=== PATIENT | male | born 1985 | race Caucasian/White ===

== ENCOUNTER 2018-10-14 10:31 | Emergency (ER) | payer SELFPAY ==
[2018-10-14 10:32] VITALS: BP 139/95; PULSE 87; RESP 16; TEMP 36.4; O2SAT 100; BMI 29.6
--- NOTE | 2018-10-14 10:48 | ED.DCSUM_ITS ---
History of Present Illness Chief Complaint: Lower Extremity Injury Informant: Patient Occurred: Yesterday Mechanism/Context: Injury Current Severity: Mild Maximum Severity: Moderate Worsened by: Movement and weightbearing Relieved by: Nothing Associated Symptoms: Loss of Funtion. Negative for: Parasthesia, Weakness Narrative: Patient is a 33-year-old male who has injured his right and left ACL presents with injury to left knee. He had hyperextension mechanism injury. He states his foot went into a hole and he hyperextended. He reports immediate swelling. He arrived using crutches because of the discomfort when he bears weight. He reports pain with extension and flexion. He denies paresthesia, anesthesia motors. He denies ankle, foot or toe pain. He denies hip pain. Tetanus Immunization: 5-10 years Prior similar symptoms: Yes Recent Illness/Hospitalization: No Past Medical History - Allergies and Home Meds Allergies/Adverse Reactions: Allergies No Known Allergies Allergy (Verified 10/14/18 10:33) Primary Care Physician: Dillon Cuadra MD [Primary Care Provider] - Prior records reviewed: Yes - Injury right and left ACL Surgical History: - - Repair of right and left ACL Lives: Alone Smoking Status: Former smoker Alcohol: Rare Drugs: None Review of Systems Musculoskeletal: Reports: Swelling, Extremity Pain. Denies: Myalgias, Arthralgias, Neck pain, Back pain Skin: Denies: Rash, Wounds Neurological: Denies: Headache, Weakness, Parasthesia, Numbness Hematologic: Denies: Easy bruising, Easy bleeding Allergy: Denies: Uticaria, Swelling of the mouth Physical Exam Vital Signs/Narrative: Vital Signs Temp Pulse Resp BP Pulse Ox 10/14/18 10:32 97.5 F L 87 16 139/95 H 100 Inital Vital Signs reviewed: Yes - Extremity Exam Left Hip: Negative for: Abrasion, Contusion, Deformity, Edema, Hematoma, Limited ROM, - - Full active range of motion left hip Left Femur: Negative for: Abrasion, Contusion, Deformity, Edema, Hematoma, Limited ROM, - Left Knee: Limited ROM, - - The left knee is swollen compared to right. Patella is not ballotable but there is an effusion. He has minimal joint line tenderness. There is no pain abrasion over the infrapatellar tendon or quadriceps tendon. He is able to extend 170 degrees and flex to 90 degrees. Th ere is no laxity with varus or valgus stress testing. Modified Linda's test is negative. Jamia's test does reveal mild laxity on the left side.. Negative for: Abrasion, Contusion, Deformity, Edema, Hematoma Left Tib Fib: Negative for: Abrasion, Contusion, Deformity, Edema, Hematoma, Limited ROM, - Left Ankle: Negative for: Abrasion, Contusion, Deformity, Edema, Hematoma, Limited ROM, - Left Foot: Negative for: Abrasion, Contusion, Deformity, Edema, Hematoma, Limited ROM, - Left Toe: Negative for: Abrasion, Contusion, Deformity, Edema, Hematoma, Limited ROM, - General: Well nourished, Well developed Head: Normocephalic, Atraumatic Eyes: Perrl, EOMI. Negative for: Pale conjunctiva, Scleral icterus, - ENT: No Trauma, Moist Mucous Membranes Neck: Nontender, Full ROM Cardiovascular: Regular rate, Regular rhythm Respiratory: No distress Skin: Normal color, No rash Neurological: Alert, Oriented x3, Cranial nerves II-XII grossly intact, Normal Strength, Normal Sensation. Negative for: Normal Gait Psychological: Normal affect, Normal Mood Diagnostic/Tx/Re-eval Chest X-Ray - ED: Read by ED Physician, - - View x-ray of the knee reveals an effusion and prior changes secondary to ACL repair. There is no fracture, subluxation or dislocation. - Medical Decision Making Based on history, physical examination concern patient has ACL injury. X-ray was obtained to determine if there is a an associated pull off fracture of the tibial spine. Since Dr. Salas repaired his left ACL we will have him follow-up with Dr. Salas. Patient was instructed weight-bear as tolerated follow-up with Dr. livier galdamez in 5 to 7 days. The immobilizer was not given since there is no obvious laxity. ED Disposition - Plan for ED Patient: Disposition: Home or Assisted Living Diagnosis: Traumatic joint effusion Instructions: ED Knee Injury Cruciate Ligament Prescriptions: Hydrocodone Bitart/Apap 5-325 [[place] 5MG-325MG] 1 tab PO Q6H PRN PRN 3 Days #10 tab PRN Reason: Pain Referrals: Dillon Cuadra MD [Primary Care Provider] - Nik Tobar DO [STAFF PHYSICIAN] - 5-7 Days Additional Instructions: Weight-bear as tolerated. Call Dr. Salas's office to be seen within the next 5 to 7 days for repeat examination and possibly additional testing.
--- NOTE | 2018-10-14 11:27 | RAD_ITS ---
STUDY: X-RAY - LEFT KNEE REASON FOR EXAM: Male, 33 years old. Pain and swelling following a fall. TECHNIQUE: 4 view(s) of the knee. COMPARISON: Comparison is made with prior examination in March 27, 2010. FINDINGS: There is evidence of prior anterior cruciate ligament repair. Normal medial femorotibial compartment. Normal lateral femorotibial compartment. Normal patellofemoral articulation. Small joint effusion. RAD/Knee 4 or More Views IMPRESSION: Small joint effusion. Evidence of prior anterior cruciate ligament repair. Electronically Signed: Mk Elias, at 11:48 EDT , Service support ,
== END 2018-10-14 12:06 | disposition home or self-care (01) ==
PROVIDERS: Emergency Provider Emergency Medicine; Family Provider Family Medicine; PCP Family Medicine
DX: M25.462 Effusion, left knee (principal); S89.92XA Unspecified injury of left lower leg, initial encounter; X50.1XXA Overexertion from prolonged static or awkward postures, initial encounter; Y93.9 Activity, unspecified; Y92.9 Unspecified place or not applicable; Z87.891 Personal history of nicotine dependence
CPT/HCPCS: 73564; 99284

== ENCOUNTER 2018-10-17 10:59 | Emergency (ER) | payer SELFPAY ==
[2018-10-17 11:00] VITALS: BP 133/90; PULSE 98; RESP 17; TEMP 36.4; O2SAT 98; BMI 25.3
--- NOTE | 2018-10-17 11:28 | ED.DCSUM_ITS ---
- ER Visit Summary Date of Service: 10/17/18 Chief Complaint: Left knee History of Present Illness: The patient is a 33 M with history of bilateral ACL repairs. Patient was seen on October 14 after he twisted his left knee stepping in a hole. There is concern for possible reinjury to his ACL. Patient states he developed increasing pain after going back to a weightbearing over the past 2 days. He did take ibuprofen and 1 tab of Lloyd prior to arrival. He is an appointment to see Dr. Tobar in 3 days. Physical Examination: Vital signs unremarkable. Patient sitting upright in bed no acute distress. Left lower extremity examination reveals mild left knee edema. He has focal tenderness along the lateral surface. There is no laxity. He has strong distal pulses and normal sensation. Test Results: [] Emergency Department Course and Treatment: Previous visit was reviewed. X-rays were unremarkable. Patient be placed in Sandro wrap to help with any edema. He is to go back to nonweightbearing status. He will be given 1 tab of Lloyd here. He will continue anti-inflammatories every 8 hours. He will be given a new prescription for Lloyd, 10 tabs which should last him until his appointment with orthopedics. Treatment Plan: [] Disposition: Discharge Impression: Left knee sprain This note was generated with [employer] dictation software. It may contain incorrect words, spelling, and punctuation that were not noted in review of the chart prior to signing ED Disposition - Plan for ED Patient: Disposition: Home or Assisted Living Instructions: ED Sprain Knee Prescriptions: Hydrocodone Bitart/Apap 5-325 [[place] 5MG-325MG] 1 tablet PO Q6H PRN PRN 3 Days #10 tablet PRN Reason: Pain Referrals: Nik Tobar DO [STAFF PHYSICIAN] - Keep Manuel appointment
[2018-10-17] MEDS: HYDROcodone Bitartrate/Apap 5/325 Tablet PO (11:37)
[2018-10-17 11:38] VITALS: BP 129/81; PULSE 83; RESP 14; O2SAT 99
== END 2018-10-17 11:45 | disposition home or self-care (01) ==
LOC: ED 11:34
PROVIDERS: Emergency Provider Emergency Medicine; Family Provider Family Medicine; PCP Family Medicine
DX: S83.92XA Sprain of unspecified site of left knee, initial encounter (principal); X50.1XXA Overexertion from prolonged static or awkward postures, initial encounter; Y93.9 Activity, unspecified; Y92.9 Unspecified place or not applicable; Z87.891 Personal history of nicotine dependence
CPT/HCPCS: 99283

== ENCOUNTER 2019-12-10 13:20 | Emergency (ER) | payer MEDICAID, SELFPAY ==
[2019-12-10 12:50] VITALS: BMI 25.3
[2019-12-10 13:21] VITALS: BP 162/104; PULSE 86; RESP 17; TEMP 36.9; O2SAT 97; BMI 27.6
--- NOTE | 2019-12-10 13:32 | ED.DCSUM_ITS ---
- ER Visit Summary Date of Service: 12/10/19 Chief Complaint: Dental pain History of Present Illness: The patient is a [address] Mejia and [facility]. He reports he has pain in his right mandibular second molar that began 3 days ago. States that his third molar has come in crooked and has broken that second molar. He describes a sharp pain is 10 of 10 worsening to 10 currently. Is worsened by bending over drinking through a straw. Is taken Tylenol and ibuprofen without relief. Is sensitive to cold temperatures. Physical Examination: Vitals: Stable. Afebrile. Mouth: No trismus. No edema of the floor of the mouth. Pain with percussion of right mandibular second molar. There is no focal abscess. His third molar is impacted into this tooth. General: A&O x 3. NAD. Cardiovascular exam: Regular rate and rhythm, no murmur, rub or gallop. Respiratory exam: Clear to auscultation bilaterally. No wheezes or stridor. Abdominal exam: Soft, nontender, nondistended, normal bowel sounds. No peritoneal signs. Extremity: No clubbing, cyanosis, or edema. Emergency Department Course and Treatment: An [facility] report was obtained which shows had one prescription for opiates in the past year. He is given a dose of penicillin here. Treatment Plan: Patient will be discharged penicillin and [place]. Instructed to follow-up with his dentist soon as possible. Return to the emergency department for any worsening symptoms. Disposition: To home in improved and stable condition. Impression: 1. Dental pain. This note was generated with [employer] dictation software. It may contain incorrect words, spelling, and punctuation that were not noted in review of the chart prior to signing ED Disposition - Plan for ED Patient: Instructions: ED Tooth Pain Prescriptions: Hydrocodone Bitart/Apap 5-325 [[place] 5MG-325MG] 1 tablet PO Q4H PRN PRN 2 Days # 10 tablet PRN Reason: Pain Penicillin V Potassium 500 mg PO 4X/DAY #40 tablet Referrals: Dentist,Your [STAFF PHYSICIAN] - As soon as possible
[2019-12-10] MEDS: Penicillin Vk 250 MG Tablet 500 MG PO (13:43)
== END 2019-12-10 13:55 | disposition home or self-care (01) ==
LOC: ED 13:47
PROVIDERS: Emergency Provider Emergency Medicine; PCP Family Medicine
DX: K01.1 Impacted teeth (principal); K08.89 Other specified disorders of teeth and supporting structures; F17.200 Nicotine dependence, unspecified, uncomplicated
CPT/HCPCS: 99283

== ENCOUNTER 2020-02-08 18:33 | Emergency (ER) | payer MEDICAID, SELFPAY ==
[2020-02-08 18:34] VITALS: BP 148/86; PULSE 86; RESP 16; TEMP 36.2; O2SAT 100; BMI 28.6
[2020-02-08 18:36] VITALS: BP 148/86; PULSE 85; RESP 16; TEMP 36.2; O2SAT 100
--- NOTE | 2020-02-08 19:30 | RAD_ITS ---
HISTORY: COUGH AND FATIGUE X 3 WEEKS EXAM: XR Chest 1 View: COMPARISON: January 31, 2015 FINDINGS: # of images incl. paperwork: 1 Lungs are clear. Heart is not enlarged. No acute osseous pathology perceived. Pulmonary vascularity is distinct. No effusions. RAD/Chest 1 View (Portable) IMPRESSION: Normal. at 2020 Reported and signed by: Danny Mora MD Electronically Signed: Danny Mora MD at 20:19 EDT Tel , Service support ,
--- NOTE | 2020-02-08 19:30 | ED.VIS.GEN ---
History of Present Illness Chief Complaint: Cough Informant: Patient Narrative: 34-year-old male presenting with cough for weeks. He also states he feels fatigued. He is already had a COVID swab and states it was negative. He had a chest x-ray which was normal. Patient was then put on a Z-Aubrey for sinusitis but this did not help. He is not had fever, chills, body aches. He is not short of breath. He does not have chest pain. Past Medical History - Allergies and Home Meds Allergies/Adverse Reactions: Allergies No Known Allergies Allergy (Verified 12/10/19 13:20) Primary Care Physician: Dillon Cuadra MD [Primary Care Provider] - Surgical History: - - Repair of right and left ACL Smoking Status: Current every day smoker Physical Exam Vital Signs/Narrative: Vital Signs Temp Pulse Resp BP Pulse Ox 02/08/20 18:36 97.1 F L 85 16 148/86 H 100 02/08/20 18:34 97.1 F L 86 16 148/86 H 100 Diagnostic/Tx/Re-eval Clinical Impression(s) from Imaging Studies Chest X-Ray 02/08/20 19:30 IMPRESSION: Normal. at 2020 Reported and signed by: Danny Mora MD Electronically Signed: Danny Mora MD at 20:19 EDT Tel , Service support , Laboratory Data 02/08/20 02/08/20 19:50 19:50 WBC 9.9 RBC 5.01 Hgb 15.9 Hct 44.8 MCV 89.4 MCH 31.7 MCHC 35.5 RDW Std Deviation 41.0 RDW Coeff of Darren 12.5 Plt Count 255 MPV 9.7 Immature Gran % (Auto) 0.800 Neut % (Auto) 52.1 Lymph % (Auto) 35.1 [place] % (Auto) 8.7 Eos % (Auto) 2.7 Baso % (Auto) 0.6 Absolute Neuts (auto) 5.2 Absolute Lymphs (auto) 3.48 Nucleated RBC % 0 Sodium 139 Potassium 4.5 Chloride 108 H Carbon Dioxide 25.0 Anion Gap 6 BUN 18 Creatinine 1.04 Estim Creat Clear Calc 95.00 Est GFR (MDRD) Af Amer 104 Est GFR (MDRD) Non-Af 86 BUN/Creatinine Ratio 17.3 Glucose 79 Calcium 9.0 Total Bilirubin 1.00 AST 36 ALT 42 Alkaline Phosphatase 61 Total Protein 7.1 Albumin 3.6 Globulin 3.5 Albumin/Globulin Ratio 1.0 - Medical Decision Making Patient presents for evaluation because he has been coughing for weeks. I did check basic lab work which was normal. Chest x-ray was normal. I do not think he needs further work-up at this time. We did discuss the possibility of seasonal allergies and he will start Claritin. He was also given a prescription for Tessalon Perles. He is given return precautions. Patient stable for discharge at this time. Impression: 1. Cough ED Disposition - Plan for ED Patient: Disposition: Home or Assisted Living Instructions: ED Cough Chronic Uncertain Cause Adult Prescriptions: Loratadine [Claritin] 10 mg PO DAILY #30 cap Transmission Status: Received by [facility] Benzonatate [Tessalon Perle] 200 mg PO TID PRN PRN #20 cap PRN Reason: Cough Transmission Status: Received by [id number] Referrals: Dillon Cuadra MD [Primary Care Provider] -
[2020-02-08 20:00] LABS: Absolute Lymphocyte Count 3.48 X10^3/uL (0.83-4.51); Absolute Neutrophil Count 5.2 X10^3/uL (2.0-7.7); Basophil# 0.06 X10^3/uL; Basophil% 0.6 % (0-1); Eosinophil# 0.27 X10^3/uL; Eosinophils% 2.7 % (0-5); Hematocrit 44.8 % (40-54); Hemoglobin 15.9 g/dL (13.0-16.5); Lymphocyte # 3.48 X10^3/ul (4.0); Lymphocyte % 35.1 % (19-41); Mean Corp Hgb Conc 35.5 g/dL (32-36); Mean Corpuscular Hgb 31.7 pg (27.0-32.0); Mean Corpuscular Volume 89.4 fL (80-94); Mean Platelet Vol. 9.7 fl (6.2-12.0); Monocyte# 0.86 X10^3/uL; Monocyte% 8.7 % (0-10); NRBC Flagged by Analyzer 0 % (0-5); Neutrophil # 5.16 X10^3/uL (2.7-7.7); Neutrophil % 52.1 % (47-70); Platelet Count 255 K/mm3 (150-450); RBC Distribution Width CV 12.5 % (11.6-14.6); Red Blood Count 5.01 M/mm3 (4.6-6.2); White Blood Count 9.9 K/mm3 (4.4-11.0)
[2020-02-08 20:22] LABS: AST(SGOT) 36 U/L (15-37); Alanine Aminotransfer ALT/SGPT 42 U/L (16-61); Albumin, Serum 3.6 g/dL (3.2-5.0); Alkaline Phosphatase 61 U/L (45-117); Anion Gap 6 (5-15); BUN 18 mg/dL (7-18); BUN/Creat Ratio 17.3 RATIO (10-20); Chloride 108 mmol/L (98-107); Creatinine, Serum 1.04 mg/dL (0.70-1.30); EST Glomerular Filtration Rate 86 mL/min (>60); Est Glom Filt Rate - Afr Amer 104 mL/min (>60); Globulin 3.5 g/dL (2.2-4.2); Glucose 79 mg/dL (74-106); Potassium 4.5 mmol/L (3.5-5.1); Protein, Total 7.1 g/dL (6.4-8.2); Sodium Level 139 mmol/L (136-145)
[2020-02-08 21:20] VITALS: BP 126/87; PULSE 87; RESP 16; O2SAT 99
== END 2020-02-08 21:25 | disposition home or self-care (01) ==
PROVIDERS: Emergency Provider Student in an Organized Health Care Education/Training Program; PCP Family Medicine
DX: R05 Cough (principal); F17.200 Nicotine dependence, unspecified, uncomplicated
CPT/HCPCS: 71045; 80053; 85025; 99283; A4216

== ENCOUNTER 2021-04-08 20:25 | Emergency (ER) | payer BC, MEDICAID, SELFPAY ==
[2021-04-08 20:28] VITALS: BP 158/97; PULSE 93; RESP 16; TEMP 37.3; O2SAT 98; BMI 27.6
--- NOTE | 2021-04-08 21:57 | ED.VIS.DENTA ---
HPI History of Present Illness Chief Complaint: Dental Informant: patient Narrative Narrative: 35-year-old male presents the emergency room with dental pain. Patient states that he has began to have pain on the left lower jawline. Is been there for about 3 weeks. He knows he supposed to have surgery on the right side and has a dental appointment upcoming on 24 April. He states he has been using Tylenol and ibuprofen but having continued pain. He notes some swelling along the left jawline. PFSH PFSH Medical History no medical history no medical history Home Medications hydrocodone-acetaminophen 1 tab PO Q6H PRN PRN 3 Days #12 tablet 04/08/21 [Rx Last Taken Unknown] penicillin V potassium 500 mg PO 4X/DAY #40 tab 04/08/21 [Rx Last Taken Unknown] Allergy/AdvReac Type Severity Reaction Status Date / Time No Known Allergies Allergy Verified 04/08/21 20:28 Social History (Updated 04/08/21 @ 21:[address] Matthew Champagne, DO) Smoking Status: Current every day smoker tobacco type: cigarettes substance use type: does not use ROS ROS ED Constitutional Constitutional ED: Denies chills or weight loss Eyes Eyes: Denies change in vision or diplopia ENT ENT ED: Reports other Details: Dental pain ; Denies ear pain, rhinorrhea or sore throat Cardiovascular Cardiovascular: Denies chest pain, orthopnea, palpitations or racing heartbeat Respiratory/Chest Respiratory/Chest: Denies cough, dyspnea or orthopnea Gastrointestinal Gastrointestinal: Denies abdominal pain, diarrhea, nausea or vomiting Genitourinary Genitourinary ED: Denies dysuria, hematuria or urinary frequency Musculoskeletal Musculoskeletal: Denies arthralgias or myalgias Integumentary Denies abscess or rash Neurologic Neurologic: Denies headache(s) or weakness Psychiatric Psychiatric: Denies anxiety, depression, suicidal ideation or suicidal thoughts Endocrine Endocrinology: Denies polydipsia, polyphagia or polyuria Allergic/Immunologic Allergic/Immunologic ED: Denies mouth swelling, tongue swelling or urticaria EXAM Physical Exam Const Vital Signs: 04/08/21 20:28 Temperature 99.2 F H Temperature Source Temporal Pulse Rate 93 Respiratory Rate 16 Blood Pressure 158/97 H Blood Pressure Mean 117 Pulse Ox 98 Oxygen Delivery Method Room Air Positive well nourished and well developed General Appearance ED: well developed HEENT Reports normocephalic, head/scalp atraumatic, TM's clear and moist mucous membranes HEENT Narrative: There is some mild swelling of the left jawline. No overlying erythema. There is no significant swelling along the gumline of the left teeth. No ulcerations noted. Tenderness to the second molar. Negative for trauma Tympanic Membrane ED: Yes TM's clear Mouth ED: Yes oral and palatal mucosa abnormal Mouth: oral and palatal mucosa abnormal Throat: posterior oropharynx normal Eyes PERRL and EOMs intact bilaterally Neck no lymphadenopathy, supple and no JVD Resp normal respiratory effort and clear to auscultation bilaterally Cardio regular rate, regular rhythm and no murmurs GI normal to inspection, nondistended, normoactive bowel sounds and non-tender Palpation: soft Back/Spine no CVA tenderness and normal ROM Extremity normal to inspection General Extremety ED: Negative for edema General Extremity: Negative for edema Neuro oriented x3 and CN's II-XII intact bilaterally Sensorium / Orientation: alert Motor Exam: strength 5/5 throughout Psych mental status grossly normal Mood & Affect: Negative for depressed or tearful Skin no rashes or lesions noted and no wounds MDM MDM MDM Narrative Medical decision making narrative: Patient will have pain and antibiotics written for him. Follow-up with dentistry soon as possible Discharge Plan Triage Chief Complaint: Dental ED Provider: Matthew Champagne Dx/Rx/DC Orders Clinical Impression: Abscess, dental Instructions: Dental Abscess Prescriptions: New hydrocodone-acetaminophen [hydrocodone-acetaminophen] 1 TABLET tablet 1 tab PO Q6H PRN PRN (Reason: Pain) 3 Days Qty: 12 RF: 0 penicillin V potassium 500 MG tablet 500 mg PO 4X/DAY Qty: 40 RF: 0 Primary Care Provider: Dillon Cuadra Referrals: Dillon Cuadra MD [Primary Care Provider] - As Needed Disposition Disposition: Home, Self Care
[2021-04-08] MEDS: HYDROcodone Bitartrate/Apap 5/325 Tablet PO (22:02)
[2021-04-08] MEDS: Penicillin Vk 250 MG Tablet 500 MG PO (22:03)
== END 2021-04-08 22:05 | disposition home or self-care (01) ==
PROVIDERS: Emergency Provider Emergency Medicine; PCP Family Medicine
DX: K04.7 Periapical abscess without sinus (principal); F17.210 Nicotine dependence, cigarettes, uncomplicated
CPT/HCPCS: 99283